=== PATIENT | male | born 1975 | race Caucasian/White ===

== ENCOUNTER 2017-01-05 09:01 | Emergency (ER) | payer BC ==
--- NOTE | 2017-01-05 09:27 | Emergency Department Record ---
History of Present Illness - General Chief Complaint: Chest Pain Stated Complaint: CHEST PAIN Time Seen by Provider: 01/05/17 09:02 Source: Patient Mode of Arrival: Ambulatory Limitations: No limitations - History of Present Illness Initial Comments: 41 yo male presents to ED with a CC of right sided chest pain symptoms intermittently for the past 1 month. Patient denies fevers, chills, or cough symptoms, and patient denies calf pain, swelling, or history of DVT. Patient reports symptoms are occasionally worse with deep breathing, and symptoms may be worse when eating "fatty foods". Patient denies health problems at his baseline. MD Complaint: Chest pain Onset/Timin -: Month(s) Onset: Other Pain Location: Right chest Pain Radiation: Other Severity: Moderate Severity scale (1-10): 8 Quality: Aching, Sharp Consistency: Intermittent Improves With: Antacids Worsens With: Nothing Treatments Prior to Arrival: None - Related Data Previous Rx's Medication Instructions Recorded Hydrocodone/Acetaminophen [[place] 1 each PO Q6H PRN #15 tablet 01/05/17 5-325 Tablet] Omeprazole [Prilosec] 40 mg PO DAILY #30 cap. 01/05/17 Allergies Allergy/AdvReac Type Severity Reaction Status Date / Time No Known Drug Allergies Allergy Verified 01/05/17 09:08 Travel Screening - Travel/Exposure Within Last 30 Days Have you traveled within the last 30 days?: No - Travel/Exposure Within Last Year Have you traveled outside the [place] in the last year?: No - Additonal Travel Details Have you been exposed to anyone with a communicable illness?: No - Travel Symptoms Symptom Screening: None Review of Systems Constitutional: Denies: Chills, Fever, Malaise, Night sweats Eyes: Denies: Eye discharge, Eye pain ENT: Denies: Congestion, Ear pain, Epistaxis Respiratory: Denies: Cough, Dyspnea Cardiovascular: Reports: Chest pain. Denies: Dyspnea on exertion Endocrine: Denies: Fatigue, Heat or cold intolerance Gastrointestinal: Reports: Abdominal pain. Denies: Nausea, Vomiting Genitourinary: Denies: Incontinence, Retention Musculoskeletal: Denies: Arthralgia, Back pain, Gout, Joint swelling Skin: Denies: Bruising, Change in color Neurological: Denies: Abnormal gait, Confusion, Headache, Seizure Psychiatric: Denies: Anxiety Hematological/Lymphatic: Denies: Anemia, Blood Clots Past Medical History - SOCIAL HISTORY Smoking Status: Never smoker Alcohol Use: None Drug Use Detail:: Marijuana - RESPIRATORY Hx Respiratory Disorders: No - CARDIOVASCULAR Hx Cardio Disorders: No - NEURO Hx Neuro Disorders: No - GI Hx GI Disorders: Yes Hx Reflux: Yes - Hx Genitourinary Disorders: No - ENDOCRINE Hx Endocrine Disorders: No - MUSCULOSKELETAL Hx Musculoskeletal Disorders: No - PSYCH Hx Psych Problems: No - HEMATOLOGY/ONCOLOGY Hx Hematology/Oncology Disorders: No Family Medical History Any Significant Family History?: Yes *Cancer Comment: Aunt Hx Diabetes: Father Hx HTN: Father, Mother Physical Exam - General General Appearance: Alert, Oriented x3, Cooperative, Mild distress Limitations: No limitations - Head Head exam: Atraumatic, Normocephalic, Normal inspection Head exam detail: negative: Abrasion, Contusion, Baires's sign, General tenderness, Hematoma, Laceration - Eye Eye exam: Normal appearance. negative: Conjunctival injection, Periorbital swelling, Periorbital tenderness, Scleral icterus - ENT Ear exam: negative: Auricular hematoma, Auricular trauma Nasal Exam: negative: Active bleeding, Discharge, Dried blood, Foreign body Mouth exam: negative: Drooling, Laceration, Muffled voice, Tongue elevation - Neck Neck exam: Normal inspection. negative: Meningismus, Tenderness - Respiratory Respiratory exam: Normal lung sounds bilaterally. negative: Rales, Respiratory distress, Rhonchi, Stridor - Cardiovascular Cardiovascular Exam: Regular rate, Normal rhythm, Normal heart sounds - GI/Abdominal GI/Abdominal exam: Soft, Tenderness (TTP RUQ, epigastric region on examination) . negative: Rebound, Rigid - Rectal Rectal exam: Deferred - exam: Deferred - Extremities Extremities exam: Normal inspection. negative: Pedal edema, Tenderness - Back Back exam: Denies: CVA tenderness (R), CVA tenderness (L) - Neurological Neurological exam: Alert, Normal gait, Oriented X3 - Psychiatric Psychiatric exam: Normal affect, Normal mood - Skin Skin exam: Normal color. negative: Abrasion Type of lesion: negative: abrasion Course Vital Signs 01/05/17 09:09 Temperature 98.6 F Pulse Rate 60 Respiratory 16 Rate Blood Pressure 147/108 Pulse Ox 95 - Reevaluation(s) Reevaluation #1: 01/05/17 09:27 EKG: NSR 65 Normal axis, normal intervals no acute ST-T wave changes Reevaluation #2: 01/05/17 11:39 Labs reviewed and are grossly unremarkable for an acute process. CXR: No acute process. US pending. Patient was updated on all results thus far, reassessed and reports improvement in his pain symptoms. Reevaluation #3: 01/05/17 15:11 UA resulted and appears negative for calculi/infection. US Abdomen: Sludge within the gallbladder, 3 mm polyp Patient was updated on all results, resting comfortably at this time. Patient appears stable for discharge with instructions for follow-up with his PCP for possible HIDA scan, will refer to Dr. Chavez in the [facility] as well for probable biliary colic. Patient appears stable for discharge at this time. 01/05/17 15:13 Medical Decision Making - Lab Data Result diagrams: 01/05/17 09:38 01/05/17 09:38 Disposition Disposition: Discharge Clinical Impression: Biliary colic Disposition: Home, Self-Care Condition: (2) Stable Instructions: Biliary Colic (ED) Additional Instructions: Return to ED if your symptoms worsen or if you have any concerns. [place] and Prilosec as directed. Follow-up with your family doctor in 3-5 days Follow-up with Dr. Chavez in the [facility] in 3-5 days. Prescriptions: Hydrocodone/Acetaminophen [[place] 5-325 Tablet] 1 each PO Q6H PRN #15 tablet PRN Reason: Nausea/Vomiting Omeprazole [Prilosec] 40 mg PO DAILY #30 yamel. Referrals: Thony Chavez [DOCTOR OF OSTEOPATH] - [facility] [Provider Group] Forms: Patient Portal Access Time of Disposition: 15:15
[2017-01-05] MEDS ORDERED: ONDANSETRON HCL IV 4 MG/2 ML VIAL IVP ONE (09:31)
[2017-01-05] MEDS ORDERED: MORPHINE SULFATE 5 MG/ML PFS IVP ONE (09:31)
[2017-01-05] MEDS ORDERED: 0.9 % SODIUM CHLORIDE 1000ML 1,000 ML IV SCH (09:45)
[2017-01-05 09:51] LABS: BASO % 0.2 % (0-6); GRAN % 72.3 % (47-80); HEMATOCRIT 46.2 % (42.0-52.0); HEMOGLOBIN 15.8 gm/dl (14.0-18.0); MEAN CELL VOLUME 86.5 fl (81-97); MEAN CORPUSCULAR HEMOGLOBIN 29.6 pg (27-33); MEAN CORPUSCULAR HGB CONC 34.2 g/dl (32-36); MEAN PLATELET VOLUME 10.8 fl (7.4-10.4); MONO % 8.5 % (0-9); PLATELET COUNT 192 K/uL (130-400); RED BLOOD COUNT 5.34 M/uL (4.40-5.70); WHITE BLOOD COUNT W/O DIFF 4.8 K/uL (4.2-12.2)
[2017-01-05 10:09] LABS: ALB/GLOB RATIO 1.6 (1.1-1.8); ALBUMIN 4.5 gm/dL (3.5-5.0); ALKALINE PHOSPHATASE 59 U/L (38-126); ALT/SGPT 26 U/L (21-72); ANION GAP 4.9 (7-16); AST/SGOT 21 U/L (17-59); BILIRUBIN,TOTAL 0.72 mg/dL (0.2-1.3); BLOOD UREA NITROGEN 15 mg/dL (9-20); CARBON DIOXIDE 25.1 mmol/L (22-30); CREATINE PHOSPHOKINASE 125 U/L (55-170); CREATININE 1.1 mg/dL (0.66-1.25); EST GLOMERULAR FILTRATION RATE > 60 ml/min; GLUCOSE,RANDOM 106 mg/dL (70-110); LIPASE 104 U/L (23-300); TOTAL PROTEIN 7.3 gm/dL (6.3-8.2)
[2017-01-05 10:19] LABS: CKMB 1.3 ug/L (0-6)
[2017-01-05] MEDS ORDERED: KETOROLAC 30 MG/ML VIAL IVP ONE (10:19)
[2017-01-05 10:23] LABS: TROPONIN I < 0.012 ng/mL (0.00-0.034)
[2017-01-05 12:58] LABS: URINE APPEARANCE CLEAR; URINE BILIRUBIN NEGATIVE (NEGATIVE); URINE BLOOD NEGATIVE (NEGATIVE); URINE COLOR YELLOW; URINE GLUCOSE (UA) NEGATIVE (NEGATIVE); URINE KETONE NEGATIVE (NEGATIVE); URINE LEUKOCYTE ESTERASE NEGATIVE (NEGATIVE); URINE NITRITE NEGATIVE (NEGATIVE); URINE PROTEIN NEGATIVE (NEGATIVE); URINE UROBILINOGEN 0.2 E.U./dL (0.20 - 1.00)
--- NOTE | 2017-01-08 10:55 | RADIOLOGY REPORT ---
EXAM: CHEST, TWO VIEWS HISTORY: LOWER RIGHT CHEST PAIN FOR ONE MONTH. TECHNIQUE: Two views of the chest were obtained. Comparison: None. FINDINGS: The lungs are clear. The cardiac silhouette, diaphragm, and osseous structures are unremarkable for age. IMPRESSION: NEGATIVE CHEST EXAMINATION. JOB NUMBER: [id number] MTDD
--- NOTE | 2017-01-08 13:43 | ULTRASOUND REPORT ---
EXAM: ABDOMEN ULTRASOUND HISTORY: RIGHT UPPER QUADRANT PAIN FOR ONE MONTH, WORSENING WITH FOODS OVER THE LAST FIVE DAYS. TECHNIQUE: Real-time meeks scale sonographic imaging of the abdomen was performed. Comparison: None. FINDINGS: The liver and spleen are not enlarged and appear homogeneous. No biliary dilatation. The common duct measures 4.4 mm in diameter, within normal limits. There is a small amount of sludge in the gallbladder. There is a 3 mm nonmobile polyp in the gallbladder. No gallbladder wall thickening or pericholecystic fluid. Sonographic Young's sign is negative. The kidneys are symmetric in size without calculi or hydronephrosis. Anechoic cyst mid to upper left kidney measures 3.5 cm. The right kidney measures 11.4 x 4.8 x 5.1 cm and the left kidney measures 10.9 x 5.7 x 5.6 cm. The pancreas, abdominal aorta, and IVC are unremarkable. IMPRESSION: 1. GALLBLADDER SLUDGE WITHOUT EVIDENCE OF ACUTE CHOLECYSTITIS. 2. TINY GALLBLADDER POLYP WITH NO SIGNIFICANCE. 3. BENIGN BOSNIAK TYPE 1 LEFT RENAL CYST. JOB NUMBER: [id number] [facility]
== END 2017-01-05 15:30 | disposition home or self-care (01) ==
LOC: ER 09:01
DX: K80.50 Calculus of bile duct without cholangitis or cholecystitis without obstruction (principal); R07.9 Chest pain, unspecified
CPT/HCPCS: 99284 ×2; 96374; 96375; 82550; 83690; 85025; 82553; 84484; 80053; 81003; 71020; 76700; 93005; 93010; J1885; J2405; J2270; J7030